=== PATIENT | male | born 1940 | race Caucasian/White ===

== ENCOUNTER 2018-05-02 15:18 | Observation (INO) | payer OTHER, MEDICARE ==
[2018-05-02 16:29] LABS: PLATELET COUNT 152 10^3/uL (150-400)
[2018-05-02] MEDS ORDERED: IOPAMIDOL (ISOVUE 370) 100 ML BTL IV ONE (16:29)
--- NOTE | 2018-05-02 16:35 | EDPHY ---
H & P Time Seen by Provider: 05/02/18 15:31 HPI/ROS: CHIEF COMPLAINT: Intermittent dizziness HISTORY OF PRESENT ILLNESS: Patient says the symptoms started yesterday morning. He is at 10-12 episodes since then which only lasted few seconds. They are always when he is standing although his said that he at least had 1 episode while he was standing in the kitchen for about 10 min, so it is not just always immediately after he gets up to standing. Patient describes this as being off balance like he needs to hold on to something or he will fall down. Definitely not lightheaded or presyncopal, not associated with chest pain or headache or shortness of breath. No ear symptoms or tinnitus. Symptoms moderate when they happen but not currently present in the emergency department. REVIEW OF SYSTEMS: Eye: no change in vision, but chronic diplopia ENT: no sore throat or ear symptoms Cardiac: no chest pain or syncope Pulmonary: no cough or SOB Abdomen: no vomiting, diarrhea, abdominal pain Musculoskeletal: no back pain or neck pain Skin: no rash Neuro: no headache Constitutional: no fever : no urinary symptoms A comprehensive 10 point review of systems is otherwise negative aside from elements mentioned in the history of present illness. PAST MEDICAL HISTORY: hypercholesterolemia, thyroid/graves disease with chronic diplopia, hypertension Social history: General Appearance: Alert and conversant, cooperative. Eyes: No scleral icterus. Pupils equal reactive extraocular motion intact no nystagmus. ENT, Mouth: Normal mucous membranes. Normal tympanic membranes. Respiratory: Normal respiratory effort, breath sounds equal, lungs are clear to auscultation. Cardiovascular: Regular rate and rhythm. Gastrointestinal: Abdomen is soft and non tender. Neurological: Alert, face symmetric, normal motor and sensory in extremities. Normal [id number], fluent speech, no pronator drift, normal heel to corey. Positional changes do not provoke the patient's symptoms. Skin: Warm and dry, no rashes. Musculoskeletal: No peripheral edema. Psychiatric: Not agitated. Emergency Department course/MDM: 1638: Discussed with neurology Dr. Olivares; recommends CT and angio imaging, admission for TIA workup. 1725: normal noncontrast and CTA per Dr. Monique. Results discussed with the patient, will admit for TIA workup as recommended by Neurology. Discussed with Handy Ignacio. Smoking Status: Never smoked Constitutional: Initial Vital Signs Temperature (C) 36.5 C 05/02/18 15:25 Heart Rate 67 05/02/18 15:25 Respiratory Rate 18 05/02/18 15:25 Blood Pressure 136/98 H 05/02/18 15:25 O2 Sat (%) 96 05/02/18 15:25 O2 Delivery Mode Room Air Allergies/Adverse Reactions: No Known Allergies Allergy (Unverified 05/02/18 15:29) Home Medications: Medication Instructions Recorded Allopurinol [Allopurinol 300 MG 300 mg PO DAILY 05/02/18 (RX)] Levothyroxine Sodium 100 mcg PO DAILY06 05/02/18 [Levothyroxine Sodium] Medical Decision Making - Diagnostics EKG Interpretation: 12-lead EKG interpreted by me; official reading is in computer system. My interpretation is sinus rhythm with incomplete right bundle branch block and left anterior fascicular block. Imaging Results: Imaging Impressions Head CT 05/02/18 16:22 Impression: There is no acute intracranial abnormality identified on this unenhanced CT evaluation. If there is further clinical concern regarding the patient's symptoms, MR imaging is suggested, if not otherwise contraindicated. Findings were discussed with BEBO HATHAWAY MD at 17:02, on 05/02/2018. Head CTA 05/02/18 16:22 Impression: 1. There is no hemodynamically significant ICA stenosis. 2. Patent vertebral arteries. CT ANGIOGRAPHY OF THE BRAIN: The major vessels of the [place] are well visualized, and there is no aneurysm, vascular malformation, flow-limiting stenosis, or acute occlusion identified. The distal cervical, petrous, cavernous , and supraclinoid portions of the internal carotid arteries are patent. The A1 and A2 segments are patent (although the right A1 segment is hypoplastic), as are the M1, M2, and M3 trifurcation vessels. With regards to the posterior circulation, the distal vertebral arteries are patent. The posterior inferior cerebellar arteries, vertebrobasilar confluence, anterior inferior cerebellar arteries, basilar artery, superior cerebellar arteries, and the posterior cerebral arteries are patent. The posterior communicating arteries are congenitally hypoplastic. The dural venous sinuses appear patent. Impression: Negative CT angiogram of the brain. CT Source Data: There are some dependent changes seen posteriorly in the right and left upper lobes and in the superior segments of the right and left lower lobes. There is some faint calcification associated with the LAD coronary artery. The visualized superior mediastinal structures are unremarkable. The visualized prevertebral soft tissues are normal, with the exception that the thyroid gland is hypoplastic. Numerous metallic dental crowns result in some limitation in evaluation of the oral cavity. The hypopharynx, epiglottis, larynx , and trachea appear normal. The osseous structures are notable for mild uniform loss of height of the C5 and C6 centra, with trace degenerative anterolisthesis at C2-C3, moderate disk space narrowing at C3-C4, and severe degenerative disk space narrowing at C5-C6 and C6-C7 where ventral and dorsal traction osteophytes are observed. There is also trace anterolisthesis at C7- T1. Multilevel degenerative facet hypertrophy and uncovertebral spondylosis is noted, resulting in variable degrees of neural foraminal stenoses. There is mild chronic mucosal thickening of the floor the left maxillary sinus. Measurement of carotid stenosis is based on the residual internal carotid diameter with [place] Symptomatic Carotid Endarterectomy Trial (NASCET) based stenosis levels. Findings were discussed with BEBO HATHAWAY at 17:24, on 05/02/2018. Neck CTA 05/02/18 16:22 Impression: 1. There is no hemodynamically significant ICA stenosis. 2. Patent vertebral arteries. CT ANGIOGRAPHY OF THE BRAIN: The major vessels of the [place] are well visualized, and there is no aneurysm, vascular malformation, flow-limiting stenosis, or acute occlusion identified. The distal cervical, petrous, cavernous , and supraclinoid portions of the internal carotid arteries are patent. The A1 and A2 segments are patent (although the right A1 segment is hypoplastic), as are the M1, M2, and M3 trifurcation vessels. With regards to the posterior circulation, the distal vertebral arteries are patent. The posterior inferior cerebellar arteries, vertebrobasilar confluence, anterior inferior cerebellar arteries, basilar artery, superior cerebellar arteries, and the posterior cerebral arteries are patent. The posterior communicating arteries are congenitally hypoplastic. The dural venous sinuses appear patent. Impression: Negative CT angiogram of the brain. CT Source Data: There are some dependent changes seen posteriorly in the right and left upper lobes and in the superior segments of the right and left lower lobes. There is some faint calcification associated with the LAD coronary artery. The visualized superior mediastinal structures are unremarkable. The visualized prevertebral soft tissues are normal, with the exception that the thyroid gland is hypoplastic. Numerous metallic dental crowns result in some limitation in evaluation of the oral cavity. The hypopharynx, epiglottis, larynx , and trachea appear normal. The osseous structures are notable for mild uniform loss of height of the C5 and C6 centra, with trace degenerative anterolisthesis at C2-C3, moderate disk space narrowing at C3-C4, and severe degenerative disk space narrowing at C5-C6 and C6-C7 where ventral and dorsal traction osteophytes are observed. There is also trace anterolisthesis at C7- T1. Multilevel degenerative facet hypertrophy and uncovertebral spondylosis is noted, resulting in variable degrees of neural foraminal stenoses. There is mild chronic mucosal thickening of the floor the left maxillary sinus. Measurement of carotid stenosis is based on the residual internal carotid diameter with [place] Symptomatic Carotid Endarterectomy Trial (NASCET) based stenosis levels. Findings were discussed with BEBO HATHAWAY at 17:24, on 05/02/2018. Imaging: Discussed imaging studies w/ educational therapy teacher Radiologist Differential Diagnosis: Differential considered including but not limited to orthostatic hypotension, peripheral vertigo, cerebellar problem or vertebrobasilar insufficiency. - Data Points Laboratory Results: Laboratory Results 05/02/18 15:40 05/02/18 15:40 05/02/18 05/02/18 05/02/18 17:03 15:40 15:40 WBC 6.18 10^3/uL 10^3/uL (3.80-9.50) RBC 5.33 10^6/uL 10^6/uL (4.40-6.38) Hgb 17.0 g/dL g/dL (13.7-17.5) Hct 50.0 % % (40.0-51.0) MCV 93.8 fL fL (81.5-99.8) MCH 31.9 pg pg (27.9-34.1) MCHC 34.0 g/dL g/dL (32.4-36.7) RDW 13.5 % % (11.5-15.2) Plt Count 152 10^3/uL 10^3/uL (150-400) MPV 9.6 fL fL (8.7-11.7) Neut % (Auto) 69.4 % % (39.3-74.2) Lymph % (Auto) 20.6 % % (15.0-45.0) [place] % (Auto) 8.1 % % (4.5-13.0) Eos % (Auto) 1.1 % % (0.6-7.6) Baso % (Auto) 0.6 % % (0.3-1.7) Nucleat RBC Rel Count 0.0 % % (0.0-0.2) Absolute Neuts (auto) 4.29 10^3/uL 10^3/uL (1.70-6.50) Absolute Lymphs (auto) 1.27 10^3/uL 10^3/uL (1.00-3.00) Absolute Monos (auto) 0.50 10^3/uL 10^3/uL (0.30-0.80) Absolute Eos (auto) 0.07 10^3/uL 10^3/uL (0.03-0.40) Absolute Basos (auto) 0.04 10^3/uL 10^3/uL (0.02-0.10) Absolute Nucleated RBC 0.00 10^3/uL 10^3/uL (0-0.01) Immature Gran % 0.2 % % (0.0-1.1) Immature Gran # 0.01 10^3/uL 10^3/uL (0.00-0.10) Sodium 139 mEq/L mEq/L (135-145) Potassium 4.1 mEq/L mEq/L (3.3-5.0) Chloride 104 mEq/L mEq/L (97-110) Carbon Dioxide 28 mEq/l mEq/l (22-31) Anion Gap 7 mEq/L mEq/L (6-14) BUN 20 mg/dL mg/dL (7-23) Creatinine 0.9 mg/dL mg/dL (0.7-1.3) Estimated GFR > 60 Glucose 168 mg/dL H mg/dL (70-100) Calcium 10.8 mg/dL H mg/dL (8.5-10.4) Phosphorus 2.6 mg/dL mg/dL (2.5-4.5) POC Troponin I 0.00 ng/mL ng/mL (0.00-0.08) Point of Care Test Results: Chemistry 05/02/18 17:03 POC Troponin I 0.00 ng/mL ng/mL (0.00-0.08) Departure - Departure Disposition: [facility] Inpatient Acute Clinical Impression: intermittent dizziness Condition: Good
--- NOTE | 2018-05-02 16:35 | CPEKG ---
Test Reason : OPEN Blood Pressure : / mmHG Vent. Rate : 052 BPM Atrial Rate : 052 BPM P-R Int : 146 ms QRS Dur : 110 ms QT Int : 403 ms P-R-T Axes : 020 -32 013 degrees QTc Int : 375 ms Sinus rhythm Incomplete RBBB and LAFB Confirmed by Armaan Chakraborty ([id number]) on 05/02/2018 4:34:50 PM Referred By: Confirmed By:Armaan Chakraborty
[2018-05-02] MEDS ORDERED: ONDANSETRON 4 MG/2 ML VIAL IVP PRN (18:54)
[2018-05-02] MEDS ORDERED: ACETAMINOPHEN 325 MG TAB PO PRN (18:54)
[2018-05-02] MEDS ORDERED: ZOLPIDEM TARTRATE 5 MG TAB PO PRN (18:54)
[2018-05-02] MEDS ORDERED: NS 1,000 ML IV SCH (19:00)
[2018-05-02] MEDS ORDERED: ASPIRIN 81 MG CHEWABLE TAB ONE (20:02)
[2018-05-02] MEDS: ASPIRIN 81 MG CHEWABLE TAB PO SCH (20:03)
--- NOTE | 2018-05-02 20:44 | HOSPPROG ---
Hospitalist Progress Note Objective: Vital Signs Temp Pulse Resp BP Pulse Ox 36.7 C 65 18 152/98 H 97 05/02/18 19:42 05/02/18 19:40 05/02/18 19:40 05/02/18 19:40 05/02/18 19:40
--- NOTE | 2018-05-02 20:46 | PDGENHP ---
History and Physical History and Physical: CC: CC: Difficulty with balance HISTORY: This patient comes to the ER [facility] because he notices over the last 36 hr that he has had multiple episodes, approximately 10, where while standing or walking he suddenly feels off balance like he will fall to 1 side or the other. The symptoms resolved very quickly but typically he will go to sit down for a minute or 2 because he is worried about falling. He has not actually fallen tripped or stumbled. Again the symptoms are very brief lasting he thinks just a few seconds during each of these episodes. There is no vertigo, lightheadedness or presyncopal type symptom, change in vision, nausea, weakness of posture or legs, or other focal changes that he can identify. There is no palpitation, chest pain, shortness of breath, leg pain or swelling, fever, nausea, or other aches or pains. He has noted that he has had a vague change in his digestion with increased belching and bowel sounds, but no abdominal pain or nausea and he has been eating well and having normal bowel function. He has never had any episodes like this before, no neurologic illnesses of any kind. He has no ear pain or change in hearing, no new tinnitus, no upper respiratory infection symptoms, toothache, sinus symptoms. He does not drink alcohol at this time. He takes a single occasional breath of marijuana, and did take 1 of those this morning to ease the digestive symptoms mentioned above, however this was done after he had already had the balance symptoms for nearly 24 hr, so was not the cause. He uses no other street drugs, and has had no new medicines or changes in his 2 medications which are levothyroxine and allopurinol. ROS: A comprehensive 10 system review revealed no other significant findings PAST MEDICAL HISTORY: -Graves disease, complicated by optimal myopathy with diplopia, the diplopia is nearly 100% resolved after radioactive iodine treatment and he is on steady replacement therapy monitored by Dr. Duron in endocrine clinic -Gout -Mild hypercalcemia, for which Dr. 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 I have reviewed the list and ordered appropriate medicines. PHYSICAL EXAMINATION: Vital Signs: Mild hypertension diastolic at presentation to the ER resolving spontaneously while in the ER, otherwise normal without fever Football Coach: Sinus with good rate Examination: General: relaxed, reading a book as I enter the room Neurologic: alert, oriented, with normal mentation, normal speech/language, normal food service sales representatives (states he has a minimal horizontal diplopia where images just barely overlap which is his chronic abnormality at baseline from his raise up the myopathy, no focal weakness, no pronator drift, normal deep tendon reflexes , normal finger to nose and rapid alternating movements of fingers hands. He stands without difficulty. Walking in a straight line he has no symptoms and a normal appearing gait, however when he turns to re-enter his room from the hallway he loses balance to the side and has to catch himself and this is a moderately obvious abnormality. Walking heel to toe he has obvious difficulty maintaining his balance side to side, and the same is true if I ask him to stand on 1 foot (left and right). On examination of his feet and toes he has normal sensation normal proprioception of passive joint movements. Skin: warm, dry, good color, no rash HEENT: normal Neck: no mass or jvd Resps: relaxed Lungs: clear breath sounds Heart: regular, no murmur Abdomen: soft, nondistended, nontender, +BS, no mass Upper Extremities: normal Lower Extremities: no edema, warm No Bleeding or bruising IV site: looks normal LABORATORY DATA: Blood sugar high at 168, which he says is the highest he has ever had Calcium at 10.6 otherwise stable metabolic panel Unremarkable CBC RADIOLOGY STUDIES: CT head noncontrast done in the ER and I reviewed the images of that study which are normal, and they have been interpreted by radiologist as normal CT angio of head and neck are done in the ER, in the studies are also unremarkable 12 LEAD EKG: I read the 12 lead EKG tracing from the ER which shows sinus rhythm no acute ischemic changes or concerning conduction abnormalities ASSESSMENT: * acute onset of imbalance in gait instability 36 hr ago, manifest on examination by falling to either side when turning while walking, when standing on 1 ft, or walking heel to toe. Absence of any other focal or generalized neurologic abnormalities at present * not taking any platelet inhibitors at home * mild diastolic hypertension on arrival is improving spontaneously, likely related to stress of his symptoms and ER presentation * hyperglycemia at 168 in the ER may be partly related to stress of his symptoms in the ER presentation but checking hemoglobin A1c is warranted and recheck the sugar tomorrow * hypercalcemia, mild which is chronic for him and followed by fisher diving Dr. Duron The cause of the presenting symptoms is uncertain but I am highly suspicious of a small brainstem or cerebellar stroke. Other etiologies could include mass, inflammatory illness, MS (less likely his age) or other. CT noncontrast is unremarkable. I reviewed all the above in detail with the patient PLANS: * admit to med surge observation at this time, could need to stay longer in change to inpatient * cardiac monitoring * I have ordered aspirin which was started in the ER * I have strongly recommended MRI scan of the brain to him at this time; he has had 1 previous MRI some years ago during which he had quite a bit of claustrophobia and anxiety. He was able to get through the study however without any medication. I have offered and recommended a trial of doing this study with Ativan. The patient would like to wait for his to return to the hospital [facility] to discuss it with her. * check lipid panel * neurology consult * neurochecks * DVT prophylaxis * hemoglobin A1c and recheck blood glucose in the morning ADDENDUM: IN FURTHER REVIEWING OF SOME OF THE PATIENT'S OUTPATIENT CLINIC RECORDS I NOTICE THAT HE WAS SEEN IN 2014 AND AND [address] TOBIAS TRUE HE 0 FOR ASSESSMENT OF "CAD". AT EACH OF THOSE VISIT THE NOTED THAT THE PATIENT HAD NO CARDIAC SYMPTOMS SINCE THE PRIOR VISIT, AND UNREMARKABLE EXAMINATION, AND NO FURTHER TESTS WERE ORDERED. HOWEVER IN THOSE VISITS WELL SOME OF HIS PRIMARY CARE VISITS IT WAS NOTED THAT HE HAS A DIAGNOSIS OF HYPERLIPIDEMIA, AND THAT AT LEAST UP THROUGH 2014 HE WAS TAKING LIPITOR THOUGH HE IS NOT ON THIS MEDICINE AT PRESENT AT HOME. (LIPID PANEL IS ORDERED FOR THE MORNING) I have reviewed the patient's case in detail with Dr. Armaan Chakraborty I have reviewed the patient's past medical records as part of this assessment, including outpatient clinic records from several physicians in our community
[2018-05-02] MEDS ORDERED: MELATONIN 3 MG TAB PO SCH (21:00)
[2018-05-03] MEDS ORDERED: LEVOTHYROXINE 100 MCG TAB PO SCH (06:00)
--- NOTE | 2018-05-03 08:26 | HOSPPROG ---
Hospitalist Progress Note Assessment/Plan: Elizabeth Rider is a 73 y/o male who noticed over the past 36 hours where he is off balance. Today is my first encounter, chart reviewed. Imaging reviewed. * acute onset of imbalance in gait instability 36 hr ago -CT head and neck are unremarkable, CT of head is normal -will get an MRI without contrast -he gets very anxious while in the MRI, will pre-medicate w IV Valium and if possible his will stay with him (If Ok w MRI team) -will get an echo w a bubble study -recently saw an ENT PA to get wax cleaned out of his ears *HLD -has hx of this and not on treatment at this time -will initiate statin *hyperglycemia -A1C is pending *mild htn -improved *hypercalcemia, chronic -see Endocrine in the OP setting *Plan: MRI and echo, neurology to see Subjective: Elizabeth said he didn't get off balance this morning. Objective: Vital Signs Temp Pulse Resp BP Pulse Ox 36.7 C 66 20 112/87 H 94 05/03/18 07:56 05/03/18 07:56 05/03/18 07:56 05/03/18 07:56 05/03/18 07:56 Laboratory Results 05/03/18 04:37 - Physical Exam Constitutional: no apparent distress, appears nourished, not in pain Eyes: PERRL Ears, Nose, Mouth, Throat: hearing normal Cardiovascular: regular rate and rhythym, no murmur, rub, or gallop Respiratory: no respiratory distress Gastrointestinal: normoactive bowel sounds Skin: warm Musculoskeletal: full muscle strength Neurologic: AAOx3, sensation intact bilaterally, CN II-XII Intact, No numbness, No pronator drift, No facial droop Psychiatric: interacting appropriately, not encephalopathic, thought process linear ICD10 Worksheet Patient Problems: Problems Problem Status Onset Ataxia Acute Ataxia Acute - ICD10 Problem Qualifiers (1) Ataxia (2) Ataxia
[2018-05-03] MEDS ORDERED: ALLOPURINOL 300 MG TAB PO SCH (09:00)
[2018-05-03] MEDS ORDERED: ENOXAPARIN 40 MG/0.4 ML SYR SC SCH (09:00)
[2018-05-03] MEDS ORDERED: DIAZEPAM 5 MG/ML 1 ML SYR IVP ONE (09:08)
[2018-05-03] MEDS ORDERED: ATORVASTATIN CALCIUM 40 MG TAB PO SCH (09:15)
[2018-05-03] MEDS: ASPIRIN 81 MG CHEWABLE TAB PO SCH (09:18)
[2018-05-03 11:37] VITALS: BP 92/74
--- NOTE | 2018-05-03 12:16 | NEUROPROG ---
Assessment: HOSPITAL NEUROLOGY CONSULT REQUESTING: Moshe Murrell MD REASON: dizzy spells HPI: 77 travis old man with a history of Grave's disease and resolved ophthalmopathy, gout who presented to the ED with 36 hours of episodic spells of imbalance. He states that he's had about 10 random episodes of feeling abruptly imbalanced when rising or standing. This will last seconds and pass. He has some GI discomfort with these episodes and his states he will look pale when it happens. He states he's not had any episodes when seated/laying. He has no vertigo, lightheadedness, hearing change, vision change, speech/language change , weakness, sensory changes, LOC, palpitations, CP, SOB. He had CTA head/neck in ED which showed no vessel stenosis/occlusion, and CT head wo showed no acute changes. ROS: As per the HPI, otherwise a complete 12 point ROS was performed and is negative ALLERGIES AND MEDS: As recorded in the EMR - reviewed and reconciled PFSH: As per the intake H&P by Dr. Murrell from yesterday EXAM: VS reviewed in EMR GEN: WDWN laying in NAD HEENT: NCAT, sclera anicteric, conjunctiva not injected, MMM, oropharynx clear, no scalp tenderness NECK: supple, nontender, no meningismus CV: RRR s1 s2 wo m/r/c/g. Carotid pulses 2+ wo bruit NEURO: MS: awake, alert, oriented to all spheres. Speech nondysarthric. No language disturbance. Follows commands. Attends to both sides. Recent/remote memory grossly intact. Mood euthymic. Good fund of knowledge. CN: pupils 3mm round and reactive. Unable to visualize fundi. VFF. Primary gaze centered. Full ocular motility. Facial sensation preserved. Face symmetric. Hearing grossly intact to finger rub. Palatoglossal movements intact. Shoulder shrug and head turn strong. MOTOR: normal bulk/tone. No adventitial movements. Full power throughout. SENSORY: intact to all modalities throughout. No extinction. COORD: no ataxia FN/HS. Nafisa preserved. REFLEX: plantars down. No clonus. DTRS absent GAIT: deferred to PT safety eval DATA REVIEW: Labs reviewed in EMR PERSONALLY INTERPRETED RESULTS AND DATA: CTA head/neck and CT head wo per the HPI. MRI brain reviewed and shows nothing acute, only some mild chronic microvascular ischemic changes in the white matter. IMPRESSION AND RECOMMENDATIONS: // EPISODIC IMBALANCE The very brief episodes of imbalance without any other accompanying neurologic symptoms does not sound cerebrovascular in etiology. His CTA head/neck and MRI brain were unremarkable. Given the brief duration of episodes, may be cardiac or peripheral vestibular. I would complete cardiac workup with TTE and consider 30-day Holter. Would have him continue ASA 81mg daily in the event this is a very atypical vascular event. Recommend outpatient follow up with [facility] for full peripheral vestibular work up. If this is unremarkable, then follow up in neurology clinic. Will sign off. Objective: Vital Signs Temp Pulse Resp BP Pulse Ox 36.7 C 52 L 16 92/74 L 95 05/03/18 11:36 05/03/18 11:36 05/03/18 11:36 05/03/18 11:36 05/03/18 11:36 Laboratory Results 05/03/18 04:37 Allergies/Adverse Reactions: No Known Allergies Allergy (Unverified 05/02/18 15:29)
--- NOTE | 2018-05-03 13:47 | ECHO ---
[email or web address] [address] [address] Main: [phone] Fax: Transthoracic Echocardiogram Name: DAVE DAY MR#: [id number] Study Date: 05/03/2018 Study Time: 10:38 AM Date of : 1940 Age: 77 year(s) Height: 167.6 cm (66 in.) Weight: 69.85 kg (154 lb.) BSA: 1.79 m2 Gender: Male Examination: Echo with Agitated Saline Indication: ataxia Image Quality: Adequate Contrast: Requested by: Marly Butler BP: / Heart Rate: Rhythm: Indication: ataxia Procedure Staff Big Data Solutions Architect: Julissa Finley [facility] Reading Physician: Vinayak Rooney MD Requesting Provider: Conclusions: Normal size left ventricle. Normal global systolic LV function. EF is 63 %. Normal diastolic LV function. The left atrium is normal in size. An agitated saline study was performed and was negative for intracardiac shunting. Trivial tricuspid valve regurgitation. There are no significant valvular abnormalities. The liver is nodular in appearance. Measurements: Chambers Valvular Assessment AV/MV Valvular Assessment TV/PV Normal Normal Normal Name Value Range Name Value Range Name Value Range IVSd (2D): 1.1 cm (0.6 cm-1.1 AV Vmax: 1.42 m/s (1 m/s-1.7 PV Vmax: 1.22 m/s (0.6 m/s-0.9 cm) m/s) m/s) LVDd (2D): 3.7 cm (4.2 cm-5.9 AV maxP mmHg ( - ) PV PGmax: 6 mmHg ( - ) cm) AV meanP mmHg ( - ) LVDs (2D): 2.7 cm (2.1 cm-4 KETTY (VTI): 2.4 cm ( - ) cm) MV E Vmax: 0.51 m/s ( - ) LVPWd (2D): 1.1 cm (0.6 cm-1 MV A Vmax: 0.65 m/s ( - ) cm) MV E/A: 0.78 ( - ) LVOTd 2.1 cm 2.1 cm mm MV PHT: 0.073 s ( - ) LVEF (BP): 63 % (>=55 %) MVA (PHT): 3.0 s ( - ) RVDd(2D): 3.4 cm (1.9 cm-3.8 cmmm) Continued Measurements: Chambers Valvular Assessment AV/MV Patient: DAVE DAY Study Date: 05/03/2018 Page 1 of 2 10:38 AM Name Value Name Value LADs: 3.4 cm MV DecTime: 225 m/s LADs Lon.1 cm MV E' Septal: 0.06 m/s LA Area: 12.2 cm2 MV E/E' Septal: 8.20 LA Volume: 34 ml MV E/E' Lateral: 6.30 LA Volume Index: 19.0 ml/m2 RA Area: 10.5 cm2 Additional Vessels Name Value Ao Ascendin.2 cm Inferior Vena Cava: 1.3 cm Findings: Left Ventricle: Normal size left ventricle. No LV hypertrophy. Normal global systolic LV function. EF is 63 %. No regional wall motion abnormality. Normal diastolic LV function. Right Ventricle: Normal size right ventricle. Normal RV function. Left Atrium: The left atrium is normal in size. An agitated saline study was performed and was negative for intracardiac shunting. Right Atrium: The right atrium is normal in size. Mitral Valve: The mitral valve is normal in appearance and function. Mild mitral valve regurgitation is present. No mitral stenosis is present. Aortic Valve: The aortic valve is tri-leaflet. Aortic sclerosis is present. There is no significant aortic valve regurgitation. No aortic valve stenosis is present. Tricuspid Valve: The tricuspid valve is normal in appearance and function. Trivial tricuspid valve regurgitation. Pulmonic Valve: The pulmonic valve is normal in appearance and function. Trivial pulmonic valve regurgitation. Aorta: The aorta is normal. Normal size ascending aorta measuring 3.2 cm. IVC: The IVC is normal sized. Pericardium: No pericardial effusion. No pleural effusion. (No Signature Object) Patient: DAVE DAY Study Date: 05/03/2018 Page 2 of 2 10:38 AM [id number]
--- NOTE | 2018-05-03 14:41 | ASMTLACE ---
LACE Length of stay for Answers: Less than 1 day current admission Acuity / Level of Answers: No Care: Did the patient have an inpatient admission? Comorbidities - select Answers: Other Notes: HTN; Graves disease all that apply # of Emergency department Answers: 1-2 visits in the last 6 months Score: 2 Date Signed: 05/03/2018 02:40 PM Electronically Signed By:Denice Clark RN
--- NOTE | 2018-05-03 16:36 | GDS ---
DISCHARGE DIAGNOSES: 1. Acute onset of imbalance resulting in gait instability. 2. Hyperlipidemia. 3. Hyperglycemia. 4. Mild hypertension. 5. Hypercalcemia. CONSULTATION: Dr. Thomas Hernadez. Briefly, the patient is a 77-year-old gentleman who presented to the emergency room with 36 hours of episodic episodes of imbalance. He also has some GI discomfort with these episodes, and his say s he looks pale when these happen. He had a CTA of his head and neck, which showed no vessel stenosi s or occlusion. A CT of the head showed no acute changes. The MRI of the brain showed nothing acute , but some chronic microvascular ischemic changes in the white matter. In addition, he had an echoca rdiogram performed, which showed no shunting. HOSPITAL COURSE: 1. Acute onset of imbalance causing gait instability. The recommendation from Neurology was for the patient to follow up with the [facility] to get a peripheral vesti bular workup performed. 2. Hyperlipidemia. He had been on statin therapy. Will resume it at home. 3. Hyperglycemia. A1c is pending. 4. Mild hypertension, improved. 5. Hypercalcemia. This is chronic. He sees Endocrine in the outpatient setting. MEDICATIONS AT DISCHARGE: Please see the EMR. DISCHARGE CONDITION: Stable blood pressure is 112/87, heart rate is 66, respiratory rate of 20, O2 s ats on room air 94%, temperature is 36.7 Celsius. DISCHARGE INSTRUCTIONS: Include: 1. To return to the ER if you have any stroke-like symptoms. 2. Take a statin daily. 3. Recommend he sees Dr. Garcia in the next week for treatment of his hypertension. Should discus s with him if he should stay on aspirin therapy in addition. 4. To follow up with [facility]. /[id number]/MODL
== END 2018-05-03 14:47 | disposition home or self-care (01) ==
LOC: F3N 20:09
PROVIDERS: ADMIT Internal Medicine; ATTEND Internal Medicine
DX: R55 Syncope and collapse (principal); R26.89 Other abnormalities of gait and mobility; E78.5 Hyperlipidemia, unspecified; I10 Essential (primary) hypertension; E87.5 Hyperkalemia; R73.9 Hyperglycemia, unspecified; Z23 Encounter for immunization
CPT/HCPCS: 70450; 70496; 70498; 70551; 90686; 92523; 93005; 93306; 96372; 99285; G0008; G0378; G9168; G9169; J1650; J3360; Q9967; 84484-PO